=== PATIENT | male | born 1960 | race Caucasian/White ===

== ENCOUNTER 2017-09-30 06:35 | Emergency (ER) | payer BC, OTHER ==
[~2017-09-30] VITALS: Ht 170.2 cm; Wt 69.5 kg
[2017-09-30 06:40] VITALS: BP 128/60
--- NOTE | 2017-09-30 06:50 | NUR ---
PATIENT AMBULATED TO ER BED 1.
--- NOTE | 2017-09-30 06:52 | NUR ---
PATIENT PRESENTS TO ED WITH NUMBNESS. PT STATES HE FELT NUMB IN THE MORNING. REPORTS NAUSEA DENIES VOMITING/DIARRHEA; SKIN IS PINK/WARM/DRY; AAOX4 WITH EVEN AND STEADY GAIT; LUNGS CLEAR BL; HR EVEN AND REGULAR; PT DENIES ANY FEVER, CP, SOB, OR COUGH AT THIS TIME; PATIENT STATES PAIN OF 0/10 AT THIS TIME; VSS; PATIENT POSITIONED FOR COMFORT; HOB ELEVATED; BEDRAILS UP X2; BED DOWN. ER MD MADE AWARE OF PT STATUS.
[2017-09-30] MEDS ORDERED: MECLIZINE 25 MG TAB PO ONE (06:55)
[2017-09-30] MEDS ORDERED: ONDANSETRON 4 MG/2 ML VIAL IVP ONE (06:55)
[2017-09-30] MEDS ORDERED: NACL 0.9% 1,000 ML IV ONE (06:55)
--- NOTE | 2017-09-30 07:16 | NUR ---
Pt report given to SISI WAGNER. Transfer of care at this time.
[2017-09-30 07:34] LABS: BASOPHILS # (AUTO) 0.1 K/uL (0.00-0.22); BASOPHILS % (AUTO) 0.7 % (0.0-2.0); EOSINOPHILS # (AUTO) 0.4 K/uL (0-0.4); EOSINOPHILS % (AUTO) 5.1 % (0.0-4.0); HEMATOCRIT 42.5 % (36-52); HEMOGLOBIN 14.2 g/dL (12.0-18.0); LYMPHOCYTES # (AUTO) 2.5 K/uL (2.0-11.5); LYMPHOCYTES % (AUTO) 29.2 % (20.5-51.1); MEAN CORPUSCULAR HEMOGLOBIN 29 pg (27-31); MEAN CORPUSCULAR HGB CONC 33 g/dL (33-37); MEAN CORPUSCULAR VOLUME 87.4 fL (80-94); MONOCYTES # (AUTO) 0.6 K/uL (0.8-1.0); MONOCYTES % (AUTO) 6.5 % (1.7-9.3); NEUTROPHILS % (AUTO) 58.5 % (42.2-75.2); PLATELET COUNT (AUTO) 261 K/uL (140-450); RED BLOOD CELL COUNT(AUTO) 4.87 MIL/uL (4.20-6.10); RED CELL DISTRIBUTION WIDTH 14.4 % (11.6-13.7); WHITE BLOOD COUNT (AUTO) 8.6 K/uL (4.8-10.8)
[2017-09-30 07:39] LABS: APPEARANCE,URINE CLEAR (CLEAR); BILIRUBIN,URINE NEGATIVE (NEGATIVE); BLOOD, URINE NEGATIVE (NEGATIVE); COLOR,URINE YELLOW (YELLOW); LEUKOCYTE ESTERASE ,URINE NEGATIVE (NEGATIVE); NITRITE, URINE NEGATIVE (NEGATIVE); PH,URINE 8.5 (5.0-9.0); UGLUCOSE NEGATIVE (NEGATIVE)
[2017-09-30 07:44] LABS: ANION GAP 14.7 (8-16); CARBON DIOXIDE 26.3 mmol/L (21-32); CREATININE 0.8 mg/dL (0.7-1.3)
[2017-09-30 07:45] LABS: RBC,URINE 0-5 (RARE) /HPF (0-5); WBC,URINE 0-5 (RARE) /HPF (0-5)
[2017-09-30 07:50] LABS: ALBUMIN 3.6 g/dL (3.4-5.0); TOTAL BILIRUBIN 0.4 mg/dL (0.0-1.0)
[2017-09-30 08:52] VITALS: BP 130/60
== END 2017-09-30 08:51 | disposition home or self-care (01) ==
LOC: MED 06:35
DX: R20.2 Paresthesia of skin (principal); R42 Dizziness and giddiness; E78.5 Hyperlipidemia, unspecified
CPT/HCPCS: 36415; 70450; 80053; 81001; 82948; 84484; 85025; 93005; 96361; 96374; 99285; J2405; J7030; J8597

== ENCOUNTER 2018-12-03 15:13 | Inpatient (IN) | payer BC ==
[~2018-12-03] VITALS: Ht 165.1 cm; Wt 65.8 kg
[2018-12-03 15:22] VITALS: BP 144/88
--- NOTE | 2018-12-03 15:28 | NUR ---
PATIENT AMBULATED TO BED 2 AT THIS TIME.
--- NOTE | 2018-12-03 15:45 | NUR ---
BIB DAUGHTER C/O INTERMITTENET LLQ PAIN STARTING TODAY. PER PT, AFTER EATING BREAKFAST, THE PAIN STARTED. PT REPORTS HERNIA SURGERY 15 YEARS AGO TO THE AREA THAT IS CAUSING PAIN NOW. DENIES N/V/D; ABDOMEN IS FLAT, SOFT, AND NON-TENDER. SKIN IS PINK/WARM/DRY; AAOX4 WITH EVEN AND STEADY GAIT; LUNGS CLEAR BL; HR EVEN AND REGULAR; PT DENIES ANY FEVER, CP, SOB, OR COUGH AT THIS TIME; PATIENT STATES PAIN OF 5/10 AT THIS TIME; VSS; PATIENT POSITIONED FOR COMFORT; HOB ELEVATED; BEDRAILS UP X1; BED DOWN. ER MD MADE AWARE OF PT STATUS. DAUGHTER IS AT BEDSIDE.
[2018-12-03 16:12] LABS: BASOPHILS # (AUTO) 0.1 K/uL (0.00-0.22); BASOPHILS % (AUTO) 0.6 % (0.0-2.0); EOSINOPHILS # (AUTO) 0.1 K/uL (0-0.4); EOSINOPHILS % (AUTO) 0.5 % (0.0-4.0); HEMATOCRIT 44.4 % (36-52); HEMOGLOBIN 14.8 g/dL (12.0-18.0); LYMPHOCYTES # (AUTO) 1.6 K/uL (2.0-11.5); LYMPHOCYTES % (AUTO) 11.4 % (20.5-51.1); MEAN CORPUSCULAR HEMOGLOBIN 29 pg (27-31); MEAN CORPUSCULAR HGB CONC 33 g/dL (33-37); MEAN CORPUSCULAR VOLUME 87.6 fL (80-94); MONOCYTES # (AUTO) 0.4 K/uL (0.8-1.0); NEUTROPHILS # (AUTO) 12.2 K/uL (1.8-7.7); NEUTROPHILS % (AUTO) 84.5 % (42.2-75.2); PLATELET COUNT (AUTO) 266 K/uL (140-450); RED BLOOD CELL COUNT(AUTO) 5.08 MIL/uL (4.20-6.10); RED CELL DISTRIBUTION WIDTH 13.8 % (11.6-13.7); WHITE BLOOD COUNT (AUTO) 14.4 K/uL (4.8-10.8)
[2018-12-03 16:41] LABS: APPEARANCE,URINE CLEAR (CLEAR); BILIRUBIN,URINE NEGATIVE (NEGATIVE); BLOOD, URINE 3+ (NEGATIVE); COLOR,URINE YELLOW (YELLOW); LEUKOCYTE ESTERASE ,URINE NEGATIVE (NEGATIVE); NITRITE, URINE NEGATIVE (NEGATIVE); PH,URINE 6.5 (5.0-9.0); UGLUCOSE NEGATIVE (NEGATIVE)
[2018-12-03 16:52] LABS: ANION GAP 14.8 (8-16); CARBON DIOXIDE 26.4 mmol/L (21-32); CREATININE 1.2 mg/dL (0.7-1.3); POTASSIUM 4.2 mmol/L (3.5-5.1)
[2018-12-03 16:53] LABS: RBC,URINE 11-20 (MOD) /HPF (0-5); WBC,URINE 0-5 /HPF (0-5)
[2018-12-03 16:58] LABS: TOTAL BILIRUBIN 0.6 mg/dL (0.0-1.0)
[2018-12-03] MEDS ORDERED: NACL 0.9% 1,000 ML IV ONE (17:20)
[2018-12-03] MEDS ORDERED: KETOROLAC 15 MG/ML VIAL IVP ONE (17:20)
--- NOTE | 2018-12-03 17:34 | NUR ---
PT STATES HIS PAIN COMES AND GOES AND IS AT 2/10 AT THIS TIME. PT WANTS TO HAVE TORADOL WHEN THE PAIN IS SEVERE.
--- NOTE | 2018-12-03 18:17 | NUR ---
PT C/O 10/31 PAIN AND REQUESTED HAVING Toradol. Toradol has been given.
[2018-12-03] MEDS ORDERED: ACETAMINOPHEN 325 MG TAB PO PRN (18:45)
[2018-12-03] MEDS ORDERED: ONDANSETRON 4 MG/2 ML VIAL IVP PRN (18:45)
[2018-12-03] MEDS ORDERED: KETOROLAC 30 MG/ML VIAL IM PRN (18:45)
[2018-12-03] MEDS ORDERED: TAMSULOSIN 0.4 MG CAP PO ONE (18:45)
[2018-12-03] MEDS ORDERED: HYDROcodone/APAP 7.5/325 MG 1 TAB PO PRN (18:45)
--- NOTE | 2018-12-03 18:55 | NUR ---
Patient will be admitted to care of [facility]. Admited to [facility]. Will go to room 107B. Belongings list completed. Report to BERNARD ALONZO.
--- NOTE | 2018-12-03 19:00 | NUR ---
Patient arrived in unit via wheelchair, able to ambulate from wheelchair to bed with no assistance, accompanied by ARRANGING FUNERAL DIRECTOR; patient A/Ox4, able to make needs known, Kenyan speaking but understands Spanish. Introduced self, updated board, oriented patient to room and hospital environment. Chief complaint of right lower quadrant pain, diagnosis is Right UVJ Stone with Severe Hydronephrosis. No SOB or distress noted, on room air. IV site on left antecubital, 20 gauge, saline locked. Skin intact. Bed in the lowest position, call light within reach. Initial assessment done. Will continue to monitor.
[2018-12-03 19:30] VITALS: BP 124/79
[2018-12-03 19:40] LABS: PROTHROMBIN TIME 9.5 secs (10.8-13.4)
[2018-12-03 19:41] LABS: FREE T4 (FREE THYROXINE) 1.01 ng/dL (0.76-1.46); MAGNESIUM 2.1 mg/dL (1.8-2.4); PHOSPHORUS 3.2 mg/dL (2.5-4.9); THYROID STIMULATING HORMONE 0.6 uIU/mL (0.34-3.74)
[2018-12-03 19:50] LABS: BARBITURATE, URINE NEG. ng/ml (NEG <=200); BENZODIAZEPINE, URINE NEG. ng/mL (NEG <=200); CANNABINOID, URINE NEG. ng/mL (NEG <=50); COCAINE, URINE NEG. ng/mL (NEG <=300); OPIATE, URINE NEG. ng/mL (NEG <=2000); PHENCYCLIDINE SCREEN,URINE NEG. ng/mL (NEG <=25)
[2018-12-03] MEDS: NACL 0.9% 1,000 ML IV SCH (20:02)
[2018-12-03] MEDS ORDERED: BACL10TA4 PO (20:15)
[2018-12-03] MEDS: DOCUSATE SODIUM 100 MG GELCAP PO SCH (20:29)
[2018-12-03] MEDS ORDERED: cefTRIAXone 1,000 MG VIAL ONE (20:35)
--- NOTE | 2018-12-03 20:35 | NUR ---
Due meds given, tolerated well.
--- NOTE | 2018-12-03 22:15 | NUR ---
Checks made; patient asleep, visible chest rise and fall noted.
[2018-12-03] MEDS: KETOROLAC 15 MG/ML VIAL IM SCH (23:11)
[2018-12-04] VITALS: BP 113/71
--- NOTE | 2018-12-04 00:10 | NUR ---
Vitals taken, no distress noted.
--- NOTE | 2018-12-04 01:50 | NUR ---
Rounds done; patient asleep, eyes closed, visible chest rise and fall noted.
--- NOTE | 2018-12-04 03:50 | NUR ---
Vitals taken , no SOB or distress noted.
[2018-12-04] MEDS: NACL 0.9% 1,000 ML IV SCH ×3 (03:55→23:17)
[2018-12-04 04:00] VITALS: BP 123/77
[2018-12-04] MEDS: KETOROLAC 15 MG/ML VIAL IM SCH ×4 (05:18→23:18)
--- NOTE | 2018-12-04 06:20 | NUR ---
Frequent checks made; no distress noted. Patient asleep, visible chest rise and fall noted.
--- NOTE | 2018-12-04 07:05 | NUR ---
Endorsed patient to AM shift RN for continuity of care; patient in stable condition.
--- NOTE | 2018-12-04 07:06 | NUR ---
RECEIVED REPORT FROM DIRECTOR OF DONOR RELATIONS NURSE FOR CONTINUITY OF CARE. PT IN STABLE CONDITION. RESPIRATIONS EVEN AND UNLABORED. SKIN INTACT. IV INTACT AND PATENT. BED IN LOW POSITION. CALL LIGHT AT BEDSIDE, INSTRUCTIONS GIVEN. WILL CONTINUE TO MONITOR.
[2018-12-04 07:14] LABS: BASOPHILS % (AUTO) 0.4 % (0.0-2.0); EOSINOPHILS # (AUTO) 0.4 K/uL (0-0.4); EOSINOPHILS % (AUTO) 3.7 % (0.0-4.0); HEMATOCRIT 43.8 % (36-52); HEMOGLOBIN 14.4 g/dL (12.0-18.0); LYMPHOCYTES # (AUTO) 3.3 K/uL (2.0-11.5); LYMPHOCYTES % (AUTO) 30.4 % (20.5-51.1); MEAN CORPUSCULAR HEMOGLOBIN 29 pg (27-31); MEAN CORPUSCULAR HGB CONC 33 g/dL (33-37); MEAN CORPUSCULAR VOLUME 89.3 fL (80-94); MONOCYTES # (AUTO) 0.8 K/uL (0.8-1.0); MONOCYTES % (AUTO) 7.5 % (1.7-9.3); NEUTROPHILS # (AUTO) 6.3 K/uL (1.8-7.7); PLATELET COUNT (AUTO) 251 K/uL (140-450); RED CELL DISTRIBUTION WIDTH 13.8 % (11.6-13.7); WHITE BLOOD COUNT (AUTO) 10.9 K/uL (4.8-10.8)
[2018-12-04 07:20] LABS: ANION GAP 12.3 (8-16); CARBON DIOXIDE 25.9 mmol/L (21-32); CREATININE 0.8 mg/dL (0.7-1.3); POTASSIUM 4.2 mmol/L (3.5-5.1)
[2018-12-04 07:28] LABS: MAGNESIUM 2.2 mg/dL (1.8-2.4); PHOSPHORUS 3.2 mg/dL (2.5-4.9)
--- NOTE | 2018-12-04 07:50 | NUR ---
PATIENT HAS BEEN SCREENED AND CATEGORIZED MODERATE NUTRITION RISK. PATIENT WILL BE SEEN WITHIN 3-5 DAYS OF ADMISSION. 12/06/18[address]
[2018-12-04 08:00] VITALS: BP 117/74
[2018-12-04] MEDS: TAMSULOSIN 0.4 MG CAP PO SCH (08:58)
[2018-12-04] MEDS: LACTOBACILLUS RHAMNOSUS GG 1 EACH CAP PO SCH (08:58)
[2018-12-04] MEDS: DOCUSATE SODIUM 100 MG GELCAP PO SCH ×2 (08:58→20:32)
--- NOTE | 2018-12-04 09:03 | NUR ---
GAVE ORDERED DUE MEDICATIONS AT THIS TIME. PT TOLERATED WELL. WILL CONTINUE TO MONITOR. FAMILY AT BEDSIDE AT THIS TIME.
--- NOTE | 2018-12-04 10:07 | NUR ---
INFORMED PT URINE SAMPLE NEEDED. PT VERBALIZED UNDERSTANDING OF NEED FOR URINE SAMPLE. URINE CUP PLACED IN RESTROOM AT THIS TIME. WILL CONTINUE TO MONITOR. PT IN STABLE CONDITION.
--- NOTE | 2018-12-04 11:48 | NUR ---
DROPPED OFF URINE SPECIMEN AT THE LAB.
[2018-12-04 12:00] VITALS: BP 119/76
--- NOTE | 2018-12-04 12:00 | NUR ---
TORADOL SCHEDULED AT THIS TIME. PT WANTS TO WAIT AND SEE IF HE HAS ANY PAIN BEFORE TAKING THIS SCHEDULED DOSE.
--- NOTE | 2018-12-04 15:16 | NUR ---
PT LYING IN BED IN STABLE CONDITION. RESPIRATIONS EVEN AND UNLABORED. CALL LIGHT AT BEDSIDE. BED IN LOW POSITION. WILL CONTINUE TO MONITOR.
[2018-12-04 16:00] VITALS: BP 122/76
--- NOTE | 2018-12-04 19:21 | NUR ---
RECEIVED BEDSIDE REPORT FROM ERIS WAGNER. PT IS AAO X4. ON ROOM AIR. RESPIRATIONS ARE EQUAL AND UNLABORED. SKIN IS INTACT. PT IS AMBULATORY DENIES ANY PAIN. LAC 20G IVF PER ORDERS. FAMILY IS AT BEDSIDE. PLAN OF CARE DISCUSSED WITH PATIENT. CALL LIGHT WITHIN REACH. WILL CONTINUE TO MONITOR.
--- NOTE | 2018-12-04 19:25 | NUR ---
GAVE REPORT TO UNIT CLERK NURSE RAJANI FOR CONTINUITY OF CARE. PT IN STABLE CONDITION Addendum: 12/04/18 at 1943 by Coral Hsu RN UNIT CLERK NURSE MAX
[2018-12-04 20:00] VITALS: BP 139/80
--- NOTE | 2018-12-04 20:32 | NUR ---
VITAL SIGNS ARE WITHIN NORMAL LIMITS. ALL QUESTIONS AND CONCERNS ANSWERED. SCHEDULED COLACE GIVEN. PT TOLERATED WELL. NO S/S OF DISTRESS. CALL LIGHT WITHIN REACH. SON AND ARE AT BEDSIDE.
--- NOTE | 2018-12-04 23:18 | NUR ---
VITAL SIGNS ARE WITHIN NORMAL LIMITS. NEW BAG OF IVF NOW INFUSING. HELD JOHN TORADOL PT DENIES PAIN. CALL LIGHT WITHIN REACH. WILL CONTINUE TO MONITOR.
[2018-12-05] VITALS: BP 111/53
--- NOTE | 2018-12-05 02:15 | NUR ---
PATIENT IS SLEEPING COMFORTABLY IN BED. RESPIRATIONS ARE EQUAL AND UNLABORED. SAFETY MEASURES ARE IN PLACE. CALL LIGHT WITHIN REACH.
[2018-12-05 04:00] VITALS: BP 124/68
--- NOTE | 2018-12-05 04:20 | NUR ---
VITAL SIGNS ARE WITHIN NORMAL LIMITS. PATIENT DENIES ANY PAIN. ALL NEEDS MET AT THIS TIME. WILL CONTINUE TO MONITOR.
[2018-12-05] MEDS: KETOROLAC 15 MG/ML VIAL IM SCH ×2 (06:00→12:00)
[2018-12-05 06:43] LABS: BASOPHILS # (AUTO) 0.1 K/uL (0.00-0.22); BASOPHILS % (AUTO) 0.6 % (0.0-2.0); EOSINOPHILS # (AUTO) 0.4 K/uL (0-0.4); EOSINOPHILS % (AUTO) 3.9 % (0.0-4.0); HEMATOCRIT 41.1 % (36-52); HEMOGLOBIN 13.5 g/dL (12.0-18.0); LYMPHOCYTES # (AUTO) 2.9 K/uL (2.0-11.5); LYMPHOCYTES % (AUTO) 32.8 % (20.5-51.1); MEAN CORPUSCULAR HEMOGLOBIN 29 pg (27-31); MEAN CORPUSCULAR HGB CONC 33 g/dL (33-37); MEAN CORPUSCULAR VOLUME 88.5 fL (80-94); MONOCYTES # (AUTO) 0.6 K/uL (0.8-1.0); MONOCYTES % (AUTO) 6.7 % (1.7-9.3); PLATELET COUNT (AUTO) 245 K/uL (140-450); RED BLOOD CELL COUNT(AUTO) 4.65 MIL/uL (4.20-6.10); RED CELL DISTRIBUTION WIDTH 13.9 % (11.6-13.7)
[2018-12-05] MEDS: NACL 0.9% 1,000 ML IV SCH (07:05)
[2018-12-05 07:06] LABS: ANION GAP 12.7 (8-16); CARBON DIOXIDE 25.2 mmol/L (21-32); CREATININE 0.8 mg/dL (0.7-1.3); POTASSIUM 3.9 mmol/L (3.5-5.1)
[2018-12-05 07:11] LABS: PHOSPHORUS 3.1 mg/dL (2.5-4.9)
--- NOTE | 2018-12-05 07:15 | NUR ---
GAVE BEDSIDE REPORT TO ERIS WAGNER. PT ENDORSED IN STABLE CONDITION.
--- NOTE | 2018-12-05 07:16 | NUR ---
GAVE REPORT TO PHP MYSQL WEB DEVELOPER NURSE MAX FOR CONTINUITY OF CARE. PT IN STABLE CONDITION. RESPIRATIONS EVEN AND UNLABORED. IV INTACT AND PATENT. SAFETY MEASURES IN PLACE. CALL LIGHT AT BEDSIDE INSTRUCTIONS GIVEN, PT VERBALIZED UNDERSTANDING OF INSTRUCTIONS. BED IN LOW POSITION. WILL CONTINUE TO MONITOR. Addendum: 12/05/18 at 0853 by Coral Hsu RN RECEIVED REPORT FROM PHP MYSQL WEB DEVELOPER NURSE SANTANA.
[2018-12-05 08:00] VITALS: BP 123/80
[2018-12-05] MEDS ORDERED: IBUP-2213 PO (08:51)
[2018-12-05] MEDS ORDERED: TAMS0.4C96 PO (08:51)
[2018-12-05] MEDS ORDERED: ACET-8386 PO (08:51)
[2018-12-05] MEDS: TAMSULOSIN 0.4 MG CAP PO SCH (09:19)
[2018-12-05] MEDS: LACTOBACILLUS RHAMNOSUS GG 1 EACH CAP PO SCH (09:19)
[2018-12-05] MEDS: DOCUSATE SODIUM 100 MG GELCAP PO SCH (09:19)
--- NOTE | 2018-12-05 09:25 | NUR ---
GAVE ORDERED DUE MEDICATIONS AT THIS TIME. PT TOLERATED WELL. CALL LIGHT AT BEDSIDE. BED IN LOW POSITION.
--- NOTE | 2018-12-05 11:05 | NUR ---
PT LYING IN BED WITH FAMILY AT BEDSIDE IN STABLE CONDITION. RESPIRATIONS EVEN AND UNLABORED. CALL LIGHT AT BEDSIDE. BED IN LOW POSITION. WILL CONTINUE TO MONITOR.
[2018-12-05 12:00] VITALS: BP 126/76
--- NOTE | 2018-12-05 12:55 | NUR ---
GAVE DISCHARGED ORDERS AND PHARMACY PRESCRIPTIONS PT VERBALIZED UNDERSTANDING OF INSTRUCTIONS. IV REMOVED, LUMEN INTACT. ID BAND REMOVED. PT REFUSED WHEELCHAIR. ESCORTED PT TO LOBBY WHERE FAMILY () WAITING WITH VEHICLE. PT IN STABLE CONDITION.
== END 2018-12-05 12:55 | disposition home or self-care (01) | DRG 694 ==
LOC: MED 15:13 → MTU 18:41
PROVIDERS: ADMIT General Practice; ATTEND General Practice
DX: N13.2 Hydronephrosis with renal and ureteral calculous obstruction (principal); D72.829 Elevated white blood cell count, unspecified; R31.9 Hematuria, unspecified; E78.5 Hyperlipidemia, unspecified; Z90.81 Acquired absence of spleen
CPT/HCPCS: 36415; 80048; 80053; 80305; 81001; 82150; 83036; 83690; 83735; 83880; 84100; 84439; 84443; 84484; 85025; 85610; 85730; 87081; 87086; 93005; 96361; 96374; 99285; J0696; J1885; J7030; J7060